=== PATIENT | female | born 1945 | race Asian ===

== ENCOUNTER → 2017-10-18 | Outpatient (CLI) | payer OTHER | LOC: LAB 10:49 | PROVIDERS: ATTEND Nurse Practitioner | DX: M19.041 Primary osteoarthritis, right hand (principal); M19.042 Primary osteoarthritis, left hand; M85.88 Other specified disorders of bone density and structure, other site; Z96.653 Presence of artificial knee joint, bilateral | CPT/HCPCS: 73565; 77077 ==